=== PATIENT | female | born 1935 | race Native Hawaiian/Other Pacific Islander ===

== ENCOUNTER 2016-09-27 13:46 | Outpatient (CLI) | payer OTHER, MEDICARE ==
[2016-09-27] MEDS ORDERED: NAMENDA XR21 MG OR (14:53)
[2016-09-27] MEDS ORDERED: ZANAFLEX2 MG PO (14:54)
[2016-09-27] MEDS ORDERED: CLARITIN10 MG PO (14:55)
[2016-09-27] MEDS ORDERED: DONE5TAB PO (14:55)
[2016-09-27] MEDS ORDERED: SIMV40TA57 (14:56)
[2016-09-27] MEDS ORDERED: WARF5TAB6 PO (14:57)
[2016-09-27] MEDS ORDERED: METOPROLOL SUCC PO (14:58)
[2016-09-27] MEDS ORDERED: WARF2.5T8 PO (14:58)
[2016-09-27] MEDS ORDERED: SYNTHROID175 MCG PO (14:59)
[2016-09-27] MEDS ORDERED: OMEP40CA PO (15:00)
[2016-09-27] MEDS ORDERED: FURO40TA93 PO (15:00)
[2016-09-27] MEDS ORDERED: POT CHLORIDE10 MEQ OR (15:01)
[2016-09-27] MEDS ORDERED: RISP0.5T2 PO (15:02)
== END 2016-09-27 14:04 | disposition short-term general hospital (02) ==
LOC: AMB 13:46
DX: M79.605 Pain in left leg (principal); M79.604 Pain in right leg
CPT/HCPCS: A0425; A0427

== ENCOUNTER 2016-09-27 14:03 | Emergency (ER) | payer OTHER, MEDICARE ==
[~2016-09-27] VITALS: Ht 162.6 cm; Wt 68.0 kg
[2016-09-27] MEDS ORDERED: NAMENDA XR21 MG OR (14:53)
[2016-09-27] MEDS ORDERED: ZANAFLEX2 MG PO (14:54)
[2016-09-27] MEDS ORDERED: CLARITIN10 MG PO (14:55)
[2016-09-27] MEDS ORDERED: DONE5TAB PO (14:55)
[2016-09-27 14:56] LABS: PLATELET COUNT 191 K/uL (152-353)
[2016-09-27] MEDS ORDERED: SIMV40TA57 (14:56)
[2016-09-27] MEDS ORDERED: WARF5TAB6 PO (14:57)
[2016-09-27] MEDS ORDERED: WARF2.5T8 PO (14:58)
[2016-09-27] MEDS ORDERED: METOPROLOL SUCC PO (14:58)
[2016-09-27] MEDS ORDERED: SYNTHROID175 MCG PO (14:59)
[2016-09-27] MEDS ORDERED: OMEP40CA PO (15:00)
[2016-09-27] MEDS ORDERED: FURO40TA93 PO (15:00)
[2016-09-27] MEDS ORDERED: POT CHLORIDE10 MEQ OR (15:01)
[2016-09-27] MEDS ORDERED: RISP0.5T2 PO (15:02)
[2016-09-27 15:13] LABS: POTASSIUM 3.8 mmol/L (3.6-5.2)
[2016-09-27 15:20] LABS: PARTIAL THROMBOPLASTIN TIME 40.2 SECONDS (24.5-33.6)
[2016-09-27 20:14] VITALS: BP 94/65; TEMP 98.5
== END 2016-09-27 20:15 | disposition short-term general hospital (02) ==
LOC: ED 14:03
DX: I48.91 Unspecified atrial fibrillation (principal); I48.92 Unspecified atrial flutter; M25.551 Pain in right hip; I51.7 Cardiomegaly; K59.09 Other constipation; R06.02 Shortness of breath
CPT/HCPCS: 80053; 81000; 82550; 82553; 83880; 84443; 84484; 85027; 85610; 85730; 93005; 96361; 96374; 96375; 99284; J3490

== ENCOUNTER 2016-09-27 20:25 | Outpatient (CLI) | payer OTHER, MEDICARE ==
[~2016-09-27 20:25] MED LIST: CLARITIN10 MG PO; DONE5TAB PO; FURO40TA93 PO; METOPROLOL SUCC PO; NAMENDA XR21 MG OR; OMEP40CA PO; POT CHLORIDE10 MEQ OR; RISP0.5T2 PO; SIMV40TA57; SYNTHROID175 MCG PO; WARF2.5T8 PO; WARF5TAB6 PO; ZANAFLEX2 MG PO
== END 2016-09-27 20:56 | disposition short-term general hospital (02) ==
LOC: AMB 20:25
DX: I48.91 Unspecified atrial fibrillation (principal); I48.92 Unspecified atrial flutter; M25.551 Pain in right hip; I51.7 Cardiomegaly; K59.09 Other constipation; R06.02 Shortness of breath
CPT/HCPCS: A0425; A0429

== ENCOUNTER 2016-10-02 10:13 | Inpatient (IN) | payer OTHER, MEDICARE ==
[2016-10-03 07:03] LABS: PLATELET COUNT 186 K/uL (152-353)
[2016-10-03 07:11] LABS: POTASSIUM 4.1 mmol/L (3.6-5.2)
== END 2016-10-06 15:24 | disposition still patient (30) ==
LOC: PAVB 10:13
PROVIDERS: ADMIT Internal Medicine
DX: Z51.89 Encounter for other specified aftercare (principal)
CPT/HCPCS: 80053; 80061; 84443; 85027; 85610; 87081

== ENCOUNTER 2016-10-06 15:54 | Inpatient (IN) | payer OTHER, MEDICARE | END 2016-11-06 09:46 | disposition still patient (30) | LOC: PAVB 15:54 | PROVIDERS: ADMIT Internal Medicine | DX: M62.81 Muscle weakness (generalized) (principal); F03.91 Unspecified dementia, unspecified severity, with behavioral disturbance; I48.2 Chronic atrial fibrillation; I50.9 Heart failure, unspecified; I10 Essential (primary) hypertension; Z79.01 Long term (current) use of anticoagulants | CPT/HCPCS: 84443; 85610 ==

== ENCOUNTER 2016-11-06 11:13 | Inpatient (IN) | payer OTHER, MEDICARE | END 2016-12-07 08:44 | disposition still patient (30) | LOC: PAVB 11:13 | PROVIDERS: ADMIT Internal Medicine | DX: M62.81 Muscle weakness (generalized) (principal); F03.91 Unspecified dementia, unspecified severity, with behavioral disturbance; I48.2 Chronic atrial fibrillation; I50.9 Heart failure, unspecified; I10 Essential (primary) hypertension; Z79.01 Long term (current) use of anticoagulants | CPT/HCPCS: 36415; 85610 ==

== ENCOUNTER 2016-12-07 09:28 | Inpatient (IN) | payer OTHER, MEDICARE ==
[2016-12-23] MEDS ORDERED: SYNTHROID175 MCG PO (22:27)
[2016-12-24] MEDS ORDERED: PACERONE200 MG OR (01:10)
[2016-12-24] MEDS ORDERED: MULTIVITAMI1 OR (01:13)
[2016-12-24] MEDS ORDERED: WARF3TAB12 PO (01:17)
[2016-12-24] MEDS ORDERED: MOBIC7.5 M1 PO (01:18)
== END 2017-01-06 10:09 | disposition still patient (30) ==
LOC: PAVB 09:28
PROVIDERS: ADMIT Internal Medicine
DX: K81.0 Acute cholecystitis (principal); M62.81 Muscle weakness (generalized); Z79.01 Long term (current) use of anticoagulants; I50.9 Heart failure, unspecified; F03.91 Unspecified dementia, unspecified severity, with behavioral disturbance; I10 Essential (primary) hypertension; I48.2 Chronic atrial fibrillation
CPT/HCPCS: 85007; 85027

== ENCOUNTER 2016-12-12 10:25 | Outpatient (CLI) | payer OTHER | END 2016-12-12 11:25 | disposition home or self-care (01) | LOC: LAB 10:25 | DX: Z79.01 Long term (current) use of anticoagulants (principal); Z51.81 Encounter for therapeutic drug level monitoring | CPT/HCPCS: 36415; 85610 ==

== ENCOUNTER 2016-12-23 18:24 | Outpatient (CLI) | payer OTHER ==
[2016-12-23 18:50] LABS: PLATELET COUNT 141 K/uL (152-353)
[2016-12-23] MEDS ORDERED: SYNTHROID175 MCG PO (22:27)
[2016-12-24] MEDS ORDERED: PACERONE200 MG OR (01:10)
[2016-12-24] MEDS ORDERED: MULTIVITAMI1 OR (01:13)
[2016-12-24] MEDS ORDERED: WARF3TAB12 PO (01:17)
[2016-12-24] MEDS ORDERED: MOBIC7.5 M1 PO (01:18)
== END 2016-12-23 20:28 | disposition home or self-care (01) ==
LOC: LAB 18:24 → LABW 18:24
PROVIDERS: Internal Medicine
DX: R53.83 Other fatigue (principal); R41.82 Altered mental status, unspecified; R50.9 Fever, unspecified
CPT/HCPCS: 36415; 80053; 81000; 85027; 87077; 87086; 87088; 87186

== ENCOUNTER 2016-12-23 20:12 | Observation (INO) | payer OTHER, MEDICARE ==
[~2016-12-23] VITALS: Ht 157.5 cm; Wt 65.1 kg
[2016-12-23 20:12] VITALS: BP 116/50; TEMP 99.1
[2016-12-23] MEDS ORDERED: SYNTHROID175 MCG PO (22:27)
[2016-12-24 00:42] VITALS: BP 96/48; TEMP 99; Ht 157.5 cm; Wt 65.1 kg
[2016-12-24] MEDS ORDERED: PACERONE200 MG OR (01:10)
[2016-12-24] MEDS ORDERED: MULTIVITAMI1 OR (01:13)
[2016-12-24] MEDS ORDERED: WARF3TAB12 PO (01:17)
[2016-12-24] MEDS ORDERED: MOBIC7.5 M1 PO (01:18)
[2016-12-24 04:00] VITALS: BP 89/47; TEMP 97.4
[2016-12-24 08:00] VITALS: BP 99/47; TEMP 98.1
[2016-12-24 12:00] VITALS: BP 93/40; TEMP 97.6
[2016-12-24 16:00] VITALS: BP 95/37; TEMP 97.6
== END 2016-12-24 20:30 | disposition short-term general hospital (02) ==
LOC: ED 20:12 → MED/SURG 20:49
PROVIDERS: ADMIT Specialist
DX: K80.11 Calculus of gallbladder with chronic cholecystitis with obstruction (principal); F03.90 Unspecified dementia, unspecified severity, without behavioral disturbance, psychotic disturbance, mood disturbance, and anxiety; I48.91 Unspecified atrial fibrillation; I10 Essential (primary) hypertension; R50.9 Fever, unspecified; E78.00 Pure hypercholesterolemia, unspecified; R53.83 Other fatigue; R41.82 Altered mental status, unspecified
CPT/HCPCS: 36415; 80053; 81000; 85027; 85610; 87040; 87077; 87086; 87088; 87186; 87205; 96360; 96361; 96365; 96367; 96375; 96376; 99220; 99284; G0378; J1720; J2543

== ENCOUNTER 2016-12-28 17:43 | Outpatient (CLI) | payer OTHER, MEDICARE ==
[~2016-12-28 17:43] MED LIST changes: +MOBIC7.5 M1 PO; +MULTIVITAMI1 OR; +PACERONE200 MG OR; +WARF3TAB12 PO
[2016-12-28 18:25] LABS: PLATELET COUNT 92 K/uL (152-353)
== END 2016-12-28 19:19 | disposition home or self-care (01) ==
LOC: LAB 17:43
PROVIDERS: Internal Medicine
DX: K81.9 Cholecystitis, unspecified (principal)
CPT/HCPCS: 85007; 85027

== ENCOUNTER 2017-01-06 10:16 | Inpatient (IN) | payer OTHER, MEDICARE | END 2017-02-06 13:00 | disposition still patient (30) | LOC: PAVB 10:16 | PROVIDERS: ADMIT Internal Medicine | CPT/HCPCS: 85610 ==

== ENCOUNTER 2017-01-08 06:26 | Outpatient (CLI) | payer OTHER, MEDICARE | END 2017-01-08 07:30 | disposition home or self-care (01) | LOC: LAB 06:26 | DX: Z79.899 Other long term (current) drug therapy (principal); Z79.01 Long term (current) use of anticoagulants; Z51.81 Encounter for therapeutic drug level monitoring | CPT/HCPCS: 85610 ==

== ENCOUNTER 2017-01-22 14:30 | Outpatient (CLI) | payer OTHER, MEDICARE | END 2017-01-22 15:30 | disposition home or self-care (01) | LOC: LAB 14:30 | DX: Z45.2 Encounter for adjustment and management of vascular access device (principal) | CPT/HCPCS: 87070 ==

== ENCOUNTER 2017-02-06 14:05 | Inpatient (IN) | payer OTHER | END 2017-03-08 09:23 | disposition still patient (30) | LOC: PAVB 14:05 | PROVIDERS: ADMIT Internal Medicine ==

== ENCOUNTER 2017-02-11 13:41 | Outpatient (CLI) | payer OTHER | END 2017-02-11 14:45 | disposition home or self-care (01) | LOC: LAB 13:41 | DX: Z51.81 Encounter for therapeutic drug level monitoring (principal) | CPT/HCPCS: 85610 ==

== ENCOUNTER 2017-02-12 06:58 | Outpatient (CLI) | payer OTHER | END 2017-02-12 08:00 | disposition home or self-care (01) | LOC: LAB 06:58 | PROVIDERS: Internal Medicine | DX: I48.2 Chronic atrial fibrillation (principal); I50.9 Heart failure, unspecified | CPT/HCPCS: 80048 ==

== ENCOUNTER 2017-02-14 05:35 | Outpatient (CLI) | payer OTHER | END 2017-02-14 19:09 | disposition home or self-care (01) | LOC: LAB 05:35 | DX: Z51.81 Encounter for therapeutic drug level monitoring (principal) | CPT/HCPCS: 85610 ==

== ENCOUNTER 2017-02-18 14:22 | Outpatient (CLI) | payer OTHER | END 2017-02-18 15:25 | disposition home or self-care (01) | LOC: LAB 14:22 | DX: Z79.01 Long term (current) use of anticoagulants (principal); Z51.81 Encounter for therapeutic drug level monitoring | CPT/HCPCS: 36415; 85610 ==

== ENCOUNTER 2017-02-22 11:24 | Outpatient (CLI) | payer OTHER | END 2017-02-22 19:24 | disposition home or self-care (01) | LOC: LAB 11:24 | DX: R82.5 Elevated urine levels of drugs, medicaments and biological substances (principal); Z79.01 Long term (current) use of anticoagulants | CPT/HCPCS: 81000; 85610; 87077; 87086; 87088 ==

== ENCOUNTER 2017-03-08 09:56 | Inpatient (IN) | payer OTHER | END 2017-04-08 09:42 | disposition still patient (30) | LOC: PAVB 09:56 | PROVIDERS: ADMIT Internal Medicine ==

== ENCOUNTER 2017-03-14 05:29 | Outpatient (CLI) | payer OTHER ==
[2017-03-14 06:26] LABS: PLATELET COUNT 133 K/uL (152-353)
[2017-03-14 06:41] LABS: POTASSIUM 3.8 mmol/L (3.6-5.2)
== END 2017-03-14 19:06 | disposition home or self-care (01) ==
LOC: LAB 05:29
PROVIDERS: Internal Medicine
DX: I10 Essential (primary) hypertension (principal); Z79.899 Other long term (current) drug therapy; Z79.01 Long term (current) use of anticoagulants
CPT/HCPCS: 36415; 80053; 80061; 84443; 85027; 85610

== ENCOUNTER 2017-04-08 10:38 | Inpatient (IN) | payer OTHER | END 2017-05-09 09:58 | disposition still patient (30) | LOC: PAVB 10:38 | PROVIDERS: ADMIT Internal Medicine ==

== ENCOUNTER 2017-04-15 04:28 | Outpatient (CLI) | payer OTHER | END 2017-04-15 20:16 | disposition home or self-care (01) | LOC: LAB 04:28 | DX: Z79.899 Other long term (current) drug therapy (principal); Z51.81 Encounter for therapeutic drug level monitoring | CPT/HCPCS: 36415; 84443; 85610 ==

== ENCOUNTER 2017-04-21 13:45 | Outpatient (CLI) | payer OTHER | END 2017-04-21 23:02 | disposition home or self-care (01) | LOC: LAB 13:45 | DX: R50.9 Fever, unspecified (principal) | CPT/HCPCS: 87804 ==

== ENCOUNTER 2017-04-23 12:13 | Outpatient (CLI) | payer OTHER, MEDICARE ==
[2017-04-23 12:58] LABS: POTASSIUM 4.5 mmol/L (3.6-5.2)
[2017-04-23 13:48] LABS: PLATELET COUNT 45 K/uL (152-353)
== END 2017-04-23 13:15 | disposition home or self-care (01) ==
LOC: LAB 12:13
PROVIDERS: Internal Medicine
DX: R06.02 Shortness of breath (principal); R82.99 Other abnormal findings in urine; R05 Cough
CPT/HCPCS: 36415; 80048; 81000; 83880; 85027; 87077; 87086; 87088; 87186

== ENCOUNTER 2017-04-29 04:22 | Outpatient (CLI) | payer OTHER | END 2017-04-29 19:38 | disposition home or self-care (01) | LOC: LAB 04:22 | DX: Z79.01 Long term (current) use of anticoagulants (principal); Z51.81 Encounter for therapeutic drug level monitoring | CPT/HCPCS: 36415; 85610 ==

== ENCOUNTER 2017-05-09 10:58 | Inpatient (IN) | payer OTHER | END 2017-06-06 09:22 | disposition still patient (30) | LOC: PAVB 10:58 | PROVIDERS: ADMIT Internal Medicine ==

== ENCOUNTER 2017-05-14 05:59 | Outpatient (CLI) | payer OTHER | END 2017-05-14 20:03 | disposition home or self-care (01) | LOC: LAB 05:59 | DX: Z79.899 Other long term (current) drug therapy (principal); Z51.81 Encounter for therapeutic drug level monitoring | CPT/HCPCS: 85610 ==

== ENCOUNTER 2017-06-06 10:20 | Inpatient (IN) | payer OTHER ==
[2017-07-03] MEDS ORDERED: TYLENOL325 MG PO (01:44)
[2017-07-03] MEDS ORDERED: AZO CRANBERY UR1 CAP PO (01:45)
[2017-07-03] MEDS ORDERED: LEVO0.0723 PO (01:47)
[2017-07-03] MEDS ORDERED: METO50TA63 PO (01:49)
[2017-07-03] MEDS ORDERED: NAMZARIC 28-101 CAP PO (01:50)
[2017-07-03] MEDS ORDERED: WARF2.5T8 PO (01:52)
== END 2017-07-07 08:00 | disposition still patient (30) ==
LOC: PAVB 10:20
PROVIDERS: ADMIT Internal Medicine
CPT/HCPCS: 85610

== ENCOUNTER 2017-07-02 21:25 | Inpatient (IN) | payer OTHER ==
[~2017-07-02] VITALS: Ht 157.5 cm; Wt 71.4 kg
[2017-07-02 21:43] VITALS: BP 100/43; TEMP 98.4
[2017-07-02 23:07] LABS: PLATELET COUNT 144 K/uL (152-353)
[2017-07-02 23:15] LABS: POTASSIUM 4.2 mmol/L (3.6-5.2)
[2017-07-03] VITALS (38 sets, daily range): BP systolic 87–125; BP diastolic 35–71; TEMP 98–99.1; Ht 157.5 cm; Wt 71.4 kg
[2017-07-03] MEDS ORDERED: TYLENOL325 MG PO (01:44)
[2017-07-03] MEDS ORDERED: AZO CRANBERY UR1 CAP PO (01:45)
[2017-07-03] MEDS ORDERED: LEVO0.0723 PO (01:47)
[2017-07-03] MEDS ORDERED: METO50TA63 PO (01:49)
[2017-07-03] MEDS ORDERED: NAMZARIC 28-101 CAP PO (01:50)
[2017-07-03] MEDS ORDERED: WARF2.5T8 PO (01:52)
[2017-07-03 09:14] LABS: POTASSIUM 3.7 mmol/L (3.6-5.2)
[2017-07-04] VITALS (18 sets, daily range): BP systolic 101–139; BP diastolic 49–87; TEMP 97.8–99
[2017-07-04 05:49] LABS: PLATELET COUNT 105 K/uL (152-353)
[2017-07-04 06:18] LABS: POTASSIUM 3.9 mmol/L (3.6-5.2)
[2017-07-05 04:00] VITALS: BP 133/60; TEMP 98.4
[2017-07-05 08:00] VITALS: BP 120/56; TEMP 98.8
[2017-07-05 12:00] VITALS: BP 124/58; TEMP 98.6
[2017-07-05 16:00] VITALS: BP 119/51; TEMP 99.9
[2017-07-05 20:00] VITALS: BP 93/70; TEMP 99.2
[2017-07-06] VITALS: BP 120/51; TEMP 99.4
[2017-07-06 04:00] VITALS: BP 133/59; TEMP 98.1
[2017-07-06 08:00] VITALS: BP 143/69; TEMP 98
== END 2017-07-06 15:05 | DRG 872 ==
LOC: ED 21:25 → ICU 07-03 00:01 → MED/SURG 07-04 14:50
PROVIDERS: Internal Medicine
DX: A41.89 Other specified sepsis (principal); N39.0 Urinary tract infection, site not specified; R41.82 Altered mental status, unspecified; I95.89 Other hypotension; E03.8 Other specified hypothyroidism; I10 Essential (primary) hypertension; I48.91 Unspecified atrial fibrillation; G30.8 Other Alzheimer's disease; F02.80 Dementia in other diseases classified elsewhere, unspecified severity, without behavioral disturbance, psychotic disturbance, mood disturbance, and anxiety
CPT/HCPCS: 36415; 51702; 80048; 80053; 81000; 82550; 83605; 84484; 85027; 85610; 87040; 87077; 87086; 87088; 87186; 93005; 96365; 96372; 99284; J0295; J1650; J1956; J3411; J3490; J7120

== ENCOUNTER 2017-07-07 09:00 | Inpatient (IN) | payer OTHER ==
[~2017-07-07 09:00] MED LIST changes: +AZO CRANBERY UR1 CAP PO; +LEVO0.0723 PO; +METO50TA63 PO; +NAMZARIC 28-101 CAP PO; +TYLENOL325 MG PO
== END 2017-08-06 09:08 | disposition still patient (30) ==
LOC: PAVB 09:00
PROVIDERS: ADMIT Internal Medicine

== ENCOUNTER 2017-07-09 08:33 | Outpatient (CLI) | payer OTHER | END 2017-07-09 22:53 | disposition home or self-care (01) | LOC: LAB 08:33 | DX: Z79.899 Other long term (current) drug therapy (principal); Z51.81 Encounter for therapeutic drug level monitoring; I48.0 Paroxysmal atrial fibrillation | CPT/HCPCS: 85610 ==

== ENCOUNTER 2017-07-26 15:47 | Outpatient (CLI) | payer OTHER | END 2017-07-26 22:27 | disposition home or self-care (01) | LOC: RAD 15:47 | DX: M25.562 Pain in left knee (principal) ==

== ENCOUNTER 2017-07-30 14:46 | Outpatient (CLI) | payer OTHER | END 2017-07-30 22:33 | disposition home or self-care (01) | LOC: CT 14:46 | DX: M85.88 Other specified disorders of bone density and structure, other site (principal) ==

== ENCOUNTER 2017-07-31 14:27 | Outpatient (CLI) | payer OTHER | END 2017-07-31 21:50 | disposition home or self-care (01) | LOC: RAD 14:27 | DX: M25.462 Effusion, left knee (principal) ==

== ENCOUNTER 2017-08-06 10:01 | Inpatient (IN) | payer OTHER | END 2017-09-06 08:55 | disposition still patient (30) | LOC: PAVB 10:01 | PROVIDERS: ADMIT Internal Medicine ==

== ENCOUNTER 2017-08-07 10:02 | Outpatient (CLI) | payer OTHER | END 2017-08-07 21:39 | disposition home or self-care (01) | LOC: LAB 10:02 | DX: I48.0 Paroxysmal atrial fibrillation (principal); Z79.899 Other long term (current) drug therapy; Z51.81 Encounter for therapeutic drug level monitoring | CPT/HCPCS: 85610 ==

== ENCOUNTER 2017-09-06 09:48 | Inpatient (IN) | payer OTHER | END 2017-10-06 15:01 | disposition still patient (30) | LOC: PAVB 09:48 | PROVIDERS: ADMIT Internal Medicine ==

== ENCOUNTER 2017-09-11 05:49 | Outpatient (CLI) | payer OTHER ==
[2017-09-11 08:40] LABS: PLATELET COUNT 120 K/uL (152-353)
[2017-09-11 08:58] LABS: POTASSIUM 4.1 mmol/L (3.6-5.2)
== END 2017-09-11 21:40 | disposition home or self-care (01) ==
LOC: LAB 05:49
PROVIDERS: Internal Medicine
DX: I10 Essential (primary) hypertension (principal); I48.0 Paroxysmal atrial fibrillation; Z79.899 Other long term (current) drug therapy; Z51.81 Encounter for therapeutic drug level monitoring; E03.8 Other specified hypothyroidism; I50.9 Heart failure, unspecified
CPT/HCPCS: 36415; 80053; 80061; 84443; 85027; 85610

== ENCOUNTER 2017-10-06 15:48 | Inpatient (IN) | payer OTHER | END 2017-11-06 08:00 | disposition still patient (30) | LOC: PAVB 15:48 | PROVIDERS: ADMIT Internal Medicine ==

== ENCOUNTER 2017-10-10 08:50 | Outpatient (CLI) | payer OTHER | END 2017-10-10 19:33 | disposition home or self-care (01) | LOC: LAB 08:50 | DX: Z79.899 Other long term (current) drug therapy (principal); Z51.81 Encounter for therapeutic drug level monitoring | CPT/HCPCS: 85610 ==

== ENCOUNTER 2017-11-06 09:00 | Inpatient (IN) | payer OTHER | END 2017-12-07 10:20 | disposition still patient (30) | LOC: PAVB 09:00 | PROVIDERS: ADMIT Internal Medicine ==

== ENCOUNTER 2017-11-12 11:26 | Outpatient (CLI) | payer OTHER | END 2017-11-12 19:52 | disposition home or self-care (01) | LOC: LAB 11:26 | DX: Z79.899 Other long term (current) drug therapy (principal); I48.0 Paroxysmal atrial fibrillation; Z79.01 Long term (current) use of anticoagulants | CPT/HCPCS: 36415; 85610 ==

== ENCOUNTER 2017-12-07 10:27 | Inpatient (IN) | payer OTHER | END 2018-01-06 09:35 | disposition still patient (30) | LOC: PAVB 10:27 | PROVIDERS: ADMIT Internal Medicine ==

== ENCOUNTER 2017-12-10 08:48 | Outpatient (CLI) | payer OTHER | END 2017-12-10 23:28 | disposition home or self-care (01) | LOC: RAD 08:48 | DX: R53.83 Other fatigue (principal); R50.9 Fever, unspecified ==

== ENCOUNTER 2018-01-06 11:06 | Inpatient (IN) | payer OTHER | END 2018-02-06 08:49 | disposition still patient (30) | LOC: PAVB 11:06 | PROVIDERS: ADMIT Internal Medicine ==

== ENCOUNTER 2018-01-10 05:15 | Outpatient (CLI) | payer OTHER | END 2018-01-10 19:30 | disposition home or self-care (01) | LOC: LAB 05:15 | DX: Z79.899 Other long term (current) drug therapy (principal); R79.1 Abnormal coagulation profile | CPT/HCPCS: 85610 ==

== ENCOUNTER 2018-02-06 10:05 | Inpatient (IN) | payer OTHER | END 2018-03-08 08:34 | disposition still patient (30) | LOC: PAVB 10:05 | PROVIDERS: ADMIT Internal Medicine ==

== ENCOUNTER 2018-02-10 06:23 | Outpatient (CLI) | payer OTHER | END 2018-02-10 19:16 | disposition home or self-care (01) | LOC: LAB 06:23 | DX: Z79.899 Other long term (current) drug therapy (principal); R79.1 Abnormal coagulation profile | CPT/HCPCS: 85610 ==

== ENCOUNTER 2018-03-08 09:22 | Inpatient (IN) | payer OTHER | END 2018-04-05 16:00 | disposition E | LOC: PAVB 09:22 | PROVIDERS: ADMIT Internal Medicine | CPT/HCPCS: 87077; 87086; 87088; 87186 ==

== ENCOUNTER 2018-03-11 05:08 | Outpatient (CLI) | payer OTHER ==
[2018-03-11 06:16] LABS: PLATELET COUNT 174 K/uL (152-353)
[2018-03-11 06:28] LABS: POTASSIUM 4.7 mmol/L (3.6-5.2)
== END 2018-03-11 21:18 | disposition home or self-care (01) ==
LOC: LAB 05:08
PROVIDERS: Internal Medicine
DX: Z79.899 Other long term (current) drug therapy (principal); R79.1 Abnormal coagulation profile
CPT/HCPCS: 36415; 80053; 84443; 85027; 85610

== ENCOUNTER → 2018-03-11 | Outpatient (CLI) | payer OTHER | LOC: RAD 21:59 → LAB 21:59 | DX: D72.829 Elevated white blood cell count, unspecified (principal); R82.90 Unspecified abnormal findings in urine ==

== ENCOUNTER → 2018-03-11 | Outpatient (CLI) | payer OTHER | LOC: LAB 21:45 | DX: D72.829 Elevated white blood cell count, unspecified (principal); R82.90 Unspecified abnormal findings in urine | CPT/HCPCS: 81000 ==

== ENCOUNTER 2018-04-04 19:54 | Outpatient (CLI) | payer OTHER | END 2018-04-04 20:51 | disposition home or self-care (01) | LOC: LAB 19:54 | DX: R53.83 Other fatigue (principal) | CPT/HCPCS: 81000 ==